=== PATIENT | male | born 1950 | race Caucasian/White ===

== ENCOUNTER → 2018-09-16 | Outpatient (CLI) | payer MEDICARE, BC | LOC: ZCOL.LAB 17:18 | DX: J31.0 Chronic rhinitis (principal) ==

== ENCOUNTER → 2019-08-12 | Outpatient (CLI) | payer MEDICARE, BC | LOC: ZCOL.LAB 14:47 | DX: J33.9 Nasal polyp, unspecified (principal) ==

== ENCOUNTER → 2020-12-12 | Outpatient (CLI) | payer MEDICARE, BC | LOC: ZLAB.ENT 16:36 | DX: J31.0 Chronic rhinitis (principal) ==